=== PATIENT | female | born 1960 | race Caucasian/White ===

== ENCOUNTER 2017-11-22 21:06 | Emergency (ER) | payer SELFPAY ==
[~2017-11-22] VITALS: Ht 162.6 cm; Wt 60.0 kg
[~2017-11-22 21:06] MED LIST: ALPR0.5T99 PO; CHLO25 PO; FOLI1 PO; HYDR-3580; KCL20 PO; LEVO75TA3 PO; THIA100T PO; ZOLO50TA OR
[2017-11-22 21:12] VITALS: BP 107/72; PULSE 90; RESP 14; TEMP 98.6; O2SAT 86
[2017-11-22] MEDS ORDERED: SODIUM CHLOR 0.9% 1000 ML INJ 1,000 ML IV SCH (21:13)
[2017-11-22] MEDS ORDERED: NALOXONE HCL 0.4 MG/ML AMP IV PUSH ONE (21:15)
[2017-11-22] MEDS ORDERED: SODIUM CHLORIDE 0.9% FLUSH 10 ML FLUSH IV FLUSH PRN (21:15)
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
[2017-11-22 21:18] VITALS: O2SAT 98
[2017-11-22] MEDS ORDERED: ZOLO50TA PO (21:23)
[2017-11-22] MEDS ORDERED: LEVO75TA3 PO (21:23)
[2017-11-22] MEDS ORDERED: SIMV5TAB3 PO (21:23)
[2017-11-22] MEDS ORDERED: HYDR-3583 PO (21:23)
[2017-11-22] MEDS ORDERED: ONDANSETRON HCL 4 MG/2 ML VIAL ONE (21:25)
[2017-11-22] MEDS ORDERED: ONDANSETRON HCL 4 MG/2 ML VIAL IV PUSH ONE (21:30)
[2017-11-22 21:55] LABS: AUTOMATED NEUTROPHIL # 3.3 TH/MM3 (1.8-7.7); BASOPHIL # 0.1 TH/MM3 (0-0.2); BASOPHIL % 1.1 % (0.0-2.0); EOSINOPHIL # 0.1 TH/MM3 (0-0.4); EOSINOPHIL % 1.8 % (0.0-4.0); HEMATOCRIT 36.3 % (35.0-46.0); HEMOGLOBIN 12.9 GM/DL (11.6-15.3); LYMPH % 46.1 % (9.0-44.0); LYMPHOCYTE # 3.7 TH/MM3 (1.0-4.8); MEAN CELL VOLUME 98.8 FL (80.0-100.0); MEAN CORPUSCULAR HGB CONC 35.4 % (32.0-36.0); MEAN PLATELET VOLUME 7.9 FL (7.0-11.0); MONO % 9.2 % (0.0-8.0); MONOCYTE # 0.7 TH/MM3 (0-0.9); NEUT % 41.8 % (16.0-70.0); PLATELET COUNT 233 TH/MM3 (150-450); RED BLOOD COUNT 3.68 MIL/MM3 (4.00-5.30); RED CELL DISTRIBUTION WIDTH 13.6 % (11.6-17.2); WHITE BLOOD COUNT 7.9 TH/MM3 (4.0-11.0)
[2017-11-22 22:01] LABS: AST (GOT) 38 U/L (15-37); BICARBONATE 29.8 MEQ/L (21.0-32.0); BLOOD UREA NITROGEN 10 MG/DL (7-18); CALCIUM 8.7 MG/DL (8.5-10.1); CHLORIDE 99 MEQ/L (98-107); CREATININE 0.66 MG/DL (0.50-1.00); GLOMERULAR FILTRATION RATE 93 ML/MIN (>89); GLUCOSE,RANDOM 95 MG/DL (74-106); SODIUM (NA) 140 MEQ/L (136-145)
[2017-11-22 22:02] LABS: ALT (GPT) 31 U/L (10-53)
[2017-11-22 22:04] LABS: ALKALINE PHOSPHATASE 69 U/L (45-117); TOTAL BILIRUBIN ADULT 0.3 MG/DL (0.2-1.0); TOTAL PROTEIN 7.8 GM/DL (6.4-8.2)
[2017-11-22 22:30] VITALS: BP 97/60; PULSE 92; RESP 16; O2SAT 99
[2017-11-23] VITALS: BP 110/69; PULSE 107; RESP 16; O2SAT 98
[2017-11-23 00:30] VITALS: BP 107/67; PULSE 102; RESP 16; O2SAT 98
[2017-11-23 03:49] LABS: BACTERIA, URINE RARE /hpf; BILIRUBIN, URINE NEG (NEG); BLOOD, URINE NEG (NEG); GLUCOSE,URINE NEG (NEG); HYALINE CAST, URINE 1 /lpf (RARE); KETONE, URINE NEG (NEG); NITRITE,URINE NEG (NEG); SQUAMOUS EPITHELIAL CELL URINE <1 /hpf (0-5); URINE COLOR LIGHT-YELLOW (YELLW/STRAW); URINE LEUKOCYTE ESTERASE NEG (NEG)
[2017-11-23 06:00] VITALS: BP 116/64; PULSE 87; RESP 16; O2SAT 95
== END 2017-11-23 06:39 | disposition home or self-care (01) ==
LOC: NEPE 21:06
DX: F19.129 Other psychoactive substance abuse with intoxication, unspecified (principal); F10.129 Alcohol abuse with intoxication, unspecified; R51 Headache; R06.02 Shortness of breath; R07.9 Chest pain, unspecified; M54.2 Cervicalgia
CPT/HCPCS: 80053; 80307; 81001; 82550; 85025; 87086; 96374; 96375; 99284; J2310; J2405; J7030